=== PATIENT | male | born 1965 | race Caucasian/White ===

== ENCOUNTER 2016-11-05 06:00 | Inpatient (IN) ==
[2016-11-05] MEDS ORDERED: ceFAZolin 1,000 MG in D5% in Water (Mini-Bag+) 100 ML IVPB ONE (06:20)
[2016-11-05] MEDS ORDERED: Chlorhexidine Rinse 15 ML MOUTHWASH MM ONE (06:21)
[2016-11-05] MEDS ORDERED: Ringers Solution, Lactated 1,000 ML IVC SCH (06:30)
[2016-11-05] MEDS ORDERED: Tranexamic Acid 1,000 MG/10 ML VIAL ONE (06:49)
[2016-11-05] MEDS ORDERED: Famotidine 20 MG/2 ML VIAL ONE (06:49)
[2016-11-05] MEDS ORDERED: *HR* Rocuronium Bromide 50 MG/5 ML VIAL ONE ×3 (06:49→11:29)
[2016-11-05] MEDS ORDERED: *HR* Etomidate 20 MG/10 ML AMPUL IVP ONE (06:49)
[2016-11-05] MEDS ORDERED: *HR* Norepinephrine 4 MG/4 ML VIAL IVC ONE (06:49)
[2016-11-05] MEDS ORDERED: Protamine Sulfate 250 MG/25 ML VIAL IVP ONE (06:49)
[2016-11-05] MEDS ORDERED: *HR* Phenylephrine 10 MG/ML VIAL ONE (06:49)
[2016-11-05] MEDS ORDERED: *HR* Midazolam HCl 5 MG/5 ML VIAL IVP ONE ×2 (06:57→10:49)
[2016-11-05] MEDS ORDERED: *HR* FentaNYL (PF) 1,000 MCG/20 ML VIAL ONE (06:57)
[2016-11-05] MEDS ORDERED: Nitroglycerin 25 MG/250 ML INFUS..BTL IVC ONE ×2 (06:59→11:30)
--- NOTE | 2016-11-05 07:13 | History & Physical Report ---
Date of Encounter: 11/05/16 Time of Encounter: 07:12 24 Hour HP Update - Instructions Instructions: If the History and Physical is less than 30 days old and was completed prior to A.M. admission and or procedure and has NOT been updated on calendar day of procedure please complete this update prior to performing procedure. - Update Patient reports changes in Medical Condition: No Changes in assessment/condition: No Changes in Medication: No Preop tests/diagnostics Reviewed: Yes Pre-Op MRSA Screen: Negative Surgery Remains Indicated: Yes Consent for Planned Operative Procedure(s) Verified: Yes - Pre-Operative Checklist Preoperative Checklist Indicated: No Prophylactic Antibiotic Ordered: Yes Home Medications Include Beta Cornelia: Yes Beta Cornelia Taken Today (Day of Surgery): Yes Beta Cornelia Taken Yesterday (Day Prior to Surgery): Yes Is VTE Prophylaxis Indicated?: NO
--- NOTE | 2016-11-05 07:17 | Anesthesia Evaluation PreOp ---
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 Any Significant HX Other Medical History: Diabetes Type II Anesthesia History: No Prior Anesthetic Complications, Past Anesthesia ([place], CTR, finger amputation) Alcohol Use: none Drug use: none Medications and Allergies Aspirin 81 mg PO DAILY 11/01/16 [History] Fenofibrate Nanocrystallized [Tricor] 145 mg PO DAILY #30 tablet 11/01/16 [Rx] Isosorbide MONOnitrate (24 HR) [Imdur] 30 mg PO DAILY #30 tab.er.24h 11/01/16 [ Rx] Metoprolol [Lopressor] 12.5 mg PO BID 11/01/16 [History] Rosuvastatin Calcium [Crestor] 40 mg PO DAILY #30 tablet 11/01/16 [Rx] Allergies No Known Allergies Allergy (Verified 05/30/15 13:37) - Meds/Allergy Pre-op Review Medications Reviewed: Yes Allergies Reviewed: Yes Beta Blockers on Current Med List: Yes If Beta Blockers taken, Date/Time (Last Dose taken): 0500 on 11/05/16 Anesthesia Results - Imaging EKG: report reviewed Chest x-ray: report reviewed Additional studies: Cath shows 3 vessel disease with EF 60% Anesthesia Exam Selected Entries 11/05/16 06:32 Temperature 97.9 F Pulse Rate 67 Respiratory Rate 18 Blood Pressure 124/81 O2 Sat by Pulse Oximetry 97 Height: 70in Weight: 210lb Pain Scale: 0 Pain Scale Used: Numeric (1 - 10) - HEENT Pupil (Motor): EOMI Mallampati: II Teeth: Normal Oral Opening: Greater than 3 - MACHINE SIGN WRITER LOC: Oriented MACHINE SIGN WRITER Motor: Normal RUE, Normal LUE, Normal RLE, Normal LLE, Normal Face MACHINE SIGN WRITER Sensory: Normal: RUE, LUE, RLE, LLE, Face - Cardiac Rhythm: Regular Murmur: None - Pulmonary Breath Sounds: bilateral Clear Anesthesia Assess/Plan ASA Score: 3 Modified Cook Scale for Level of Consciousness: Cooperative, oriented, and tranquil Anesthetic Plan: General Monitoring Plan: Standard Monitors, A-Line, PAC Recovery Plan: ICU (Discussed GA, lines, possible BRUCE, blood products and need for ICU. Questions answered and agrees to proceed.)
[2016-11-05] MEDS ORDERED: Albumin Human 25% 25 GM/100 ML IV.SOLN IV ONE (08:32)
[2016-11-05] MEDS ORDERED: Lidocaine 2% Syringe 100 MG/5 ML IV ONE (08:32)
[2016-11-05] MEDS ORDERED: Mannitol 25% vial 12.5 GM/50 ML VIAL IVP ONE (08:32)
[2016-11-05] MEDS ORDERED: *HR* Heparin 10,000 UNIT/10 ML VIAL IV ONE (08:32)
[2016-11-05] MEDS ORDERED: *HR* Phenylephrine 10 MG/ML VIAL IVC ONE (08:32)
[2016-11-05] MEDS ORDERED: *HR* Magnesium Sulfate 2 GM/50 ML PIGGYBACK IVPB ONE (08:32)
--- NOTE | 2016-11-05 09:07 | Anesthesia Procedures ---
Date of Encounter: 11/05/16 Time of Encounter: 07:55 Procedures: Anesthesia - Arterial Line Consent obtained: written consent Time out performed: Yes Sedation: Versed (mg): 2 Sedation: Fentanyl (mcg): 100 Supplemental Oxygen via Nasal Cannula (L/min): 2 Local Anesthetic: Lidocaine 1% Amount of Anesthetic used (mls): 1 Size (Gauge): 20 Length (inches): 5 Technique Used: sterile prep, guide wire technique, direct puncture technique Post-Procedure: line sutured into place, line taped into place, dry sterile dressing placed Patient tolerated procedure: well, no complications Complications: none Site: Brachial R (poor right radial pulse. Was site of cardiac cath. attempt x 1 at brachial site.) - Central Line Placement Right IJ Consent obtained: written consent Time out performed: Yes Patient placed on monitor/pulse ox: Yes prep: mask, gown, gloves Central line prep: Chlorhexidine scrub Ultrasound used for placement: Yes Technique: Seldinger Lumen Inserted: Introducer Post procedure: sutured in place, good blood return, all ports aspirated, flushed, capped, sterile dressing applied Patient tolerated procedure: well, no complications (attempt x 1. [place] placed without issues and wedge at approx 55cm)
[2016-11-05] MEDS ORDERED: Esmolol 100 MG/10 ML VIAL IVP ONE ×2 (09:23→12:11)
[2016-11-05] MEDS ORDERED: *HR* FentaNYL (PF) 250 MCG/5 ML VIAL ONE (10:49)
[2016-11-05] MEDS ORDERED: NiCARdipine 2.5 MG/10 ML Syringe IVPB ONE (11:29)
[2016-11-05] MEDS ORDERED: 0.9 % Sodium Chloride w KCl 20 MEQ/1,000 ML MLS IVC ONE (11:30)
[2016-11-05] MEDS ORDERED: Albumin Human 5% 50.0 GM/1,000 ML VIAL ONE (11:30)
[2016-11-05] MEDS ORDERED: Insulin Regular, Human 100 UNIT/ML IV PRN (12:32)
[2016-11-05] MEDS ORDERED: Magnesium Sulfate 2 GM in D5% in Water 100 ML IVPB PRN (12:32)
[2016-11-05] MEDS ORDERED: Naloxone 0.4 MG/ML INJ IVP PRN (12:32)
[2016-11-05] MEDS ORDERED: Potassium Chloride 40 MEQ/200 ML BAG IVPB PRN (12:32)
[2016-11-05] MEDS ORDERED: Ondansetron 4 MG/2 ML VIAL IVPB PRN (12:32)
[2016-11-05] MEDS ORDERED: Acetaminophen 650 MG RECTAL SUPP RC PRN (12:32)
[2016-11-05] MEDS ORDERED: Calcium Chloride 1,000 MG in 0.9 % Sodium Chloride 100 ML IVPB PRN (12:32)
[2016-11-05] MEDS ORDERED: *HR* Dextrose 50 % in Water (Syg) 50 ML SYRINGE IVP PRN (12:32)
[2016-11-05] MEDS ORDERED: *HR* Morphine 2 MG/ML SYRINGE IVP PRN (12:32)
[2016-11-05] MEDS ORDERED: 0.9 % Sodium Chloride w KCl 20 MEQ/1,000 ML MLS IVC SCH (12:45)
[2016-11-05] MEDS ORDERED: Insulin Human Regular 100 UNIT in 0.9 % Sodium Chloride 100 ML IV SCH (12:45)
[2016-11-05] MEDS ORDERED: niCARdipine 40 MG/200 ML MLS IVC SCH (12:45)
[2016-11-05] MEDS ORDERED: Norepinephrine 4 MG in D5% in Water 250 ML IVC SCH (12:45)
[2016-11-05] MEDS ORDERED: Pantoprazole 40 MG VIAL IVP SCH (12:45)
--- NOTE | 2016-11-05 12:46 | Operative Note ---
Date of procedure: 11/05/16 Pre-op diagnosis: CAD Post-op diagnosis: same Procedure: 1. CABG 3 (GONZALEZ to LAD, free GABRIEL to OM1, left radial artery to PDA). 2. Left radial artery harvest. Implants: None. Complications: None. Anesthesia: MARYANN Surgeon: Billie Louis Quality Compliance Consultant: Ryan Wilkes Specimen: None. Condition: stable Disposition: ICU Procedure in Detail: INDICATIONS FOR OPERATION: The patient is a 51-year-old newly diagnosed type II diabetic, hypertensive man with hypercholesterolemia. He presents with a one-year history of exertional left jaw and neck pain. The patient underwent an extensive cardiac workup including a nuclear stress test and cardiac catheterization. The nuclear stress test revealed anterolateral and inferior ischemia. Subsequent cardiac catheterization revealed severe three-vessel CAD, including a 70% proximal LAD lesion, a 70-80% proximal LCx lesion, and tandem 95% mid RCA lesions. He has been recommended for CABG. Given the patient's young age and his diabetes I plan to attempt a total arterial revascularization using the GONZALEZ, GABRIEL, and left radial artery. FINDINGS AT OPERATION: The aorta was normal caliber without calcification. The coronary arteries measure approximately 1.5-2 mm diameter and had mild to moderate distal disease. The free GABRIEL and the left radial artery had good flow and were acceptable conduit. The total bypass time was 75 minutes, cross-clamp time 40 minutes, intentional hypothermia of 34C. DESCRIPTION OF OPERATION: After obtaining informed operative consent from the patient, he was taken to the operative room are satisfactory general tracheal anesthetic was induced. Appropriate monitoring lines were placed, the patient's chest, abdomen, and lower extremities were prepped and draped in a sterile fashion. The left radial artery was harvested after was determined in the preoperative area that the patient had good palmar arch flow while occluding the radial artery. Incision was made to the skin and subcutaneous tissue and the artery was harvested using a bipolar cautery device. The artery was removed distended and found to be of good quality. The subcutaneous tissue and skin edges were reapproximated running Vicryl sutures. Simultaneously a standard mid sternotomy incision was made and the sternum divided. The GONZALEZ was harvested from its bed and side branches divided between hemoclips. The GABRIEL was then harvested in a similar fashion and side branches divided between hemoclips. The patient was heparinized and the GABRIEL was divided both proximally and distally to be used as a free graft. The sternum was in the pericardium opened and reflected laterally. The patient was prepared for cannulation by placing pursestring sutures in the distal ascending aorta, mid-ascending aorta, and right atrial appendage. When the ACT was greater than 200 seconds the aorta was cannulated followed by placement of a dual stage venous cannula through the right atrial appendage and into the IVC. A stab-in metabolic cannula was placed in the mid-ascending aorta. The patient was placed on bypass and the temperature allowed to drift to 34C. The distal targets were identified and the aorta was then crossclamped. The patient received 700 mL of cold antegrade crystalloid cardioplegia through the mid-ascending aorta and the patient's heart obtain rapid diastolic arrest. The PDA was opened a [place] blade and the left radial artery was anastomosed in end-to-side fashion to the PDA using a running 7-0 Prolene suture. The anastomosis found to be hemostatic the patient stated of this cold antegrade crystalloid cardioplegia through the aortic root. The OM1 branch was then opened with a [place] blade and the free GABRIEL was anastomosed in end-to-side fashion using a running 7-0 Prolene suture. The anastomosis found to be hemostatic and the mammary pedicle was tacked to the epicardium using interrupted 5-0 silk suture. After this anastomosis the patient received a final dose of cold antegrade crystalloid cardioplegia through the aortic root. The LAD was opened [place] blade and the GONZALEZ was anastomosed in an end-to-side fashion using a running 7-0 Prolene suture. The anastomosis was found to be hemostatic and the mammary pedicle was tacked to the epicardium using interrupted 5-0 silk suture. Rewarming was begun during this anastomosis. The aortic cross-clamp was released and the heart distended. The left radial artery and the GABRIEL were measured and cut at appropriate lengths. A partial occluding clamp was placed across the mid-ascending aorta and the antegrade cardioplegia cannula was removed. Additional aortotomy site was admitted 11 blade and both sites were enlarged with a 4 mm punch. The left radial artery and the GABRIEL were anastomosed in an end-to-side fashion to the aorta using a running 6-0 Prolene suture. The arterial grafts for left back bleed, and thus de -air the ascending aorta prior to removing the partial occluding clamp. The anastomoses were tied securely. The proximal distal anastomoses were found to be hemostatic and the proximal anastomoses were marked with radiopaque loops. Two right ventricular temporary epicardial patient was replaced, and 4 chest tubes were placed, 2 in the mediastinum and one into either pleural space. During rewarming the patient's heart rhythm degenerated to ventricular fibrillation and he required two 10 J direct current shocks in order to regain normal sinus rhythm. When the patient' s systemic temperature reached 36C, he was ventilated to receive volume. He was then weaned from bypass and required no inotropic support. Protamine was administered and the aortic and venous cannulas were removed. The pursestring sutures were secured and the venous cannulation site was reinforced with a 4 Prolene suture. The pericardium was loosely approximated in the midline using interrupted 0 silk suture, and the sternum was reapproximated using double wires. The pectoralis major fascia, rectus abdominis fascia, subcutaneous tissue, and skin edges were reapproximated using running Vicryl sutures. A negative pressure dressing was applied to the sternotomy incision. The patient was transferred to the ICU in satisfactory postoperative condition. There were no intraoperative complications, and instrument, needle, and sponge count were correct at end operation. - Open Heart Detail GRAY (Internal Mammary Artery) Usage: Yes Cardiopulmonary Bypass Time (mins): 75 Aortic Cross Clamp Time (mins): 40 Intentional Hypothermia Temperature (C.): 34
[2016-11-05] MEDS: Nitroglycerin 25 MG/250 ML INFUS..BTL IVC SCH ×2 (13:02→23:02)
[2016-11-05 13:39] LABS: Basophils % 0.2 %; Eosinophils # 0.1 K/mcL (0.0-0.6); Eosinophils % 0.6 %; Hematocrit 37.1 % (37.5-50.1); Immature Granulocytes % 0.6 % (0-4); Lymphocytes # 3.1 K/mcL (0.6-4.6); Lymphocytes % 19.8 %; Mean Corpuscular HGB Conc 35.3 g/dL (31.6-35.5); Mean Corpuscular Hemoglobin 29.6 pg (28.0-33.3); Mean Corpuscular Volume 83.7 fL (83.0-100.0); Mean Platelet Volume 10.2 fL (9.4-12.4); Monocytes # 0.7 K/mcL (0.0-1.3); Monocytes % 4.2 %; Neutrophils # 11.8 K/mcL (1.6-8.9); Platelet Count 120 K/mcL (140-400); Red Blood Count 4.43 M/mcL (4.19-5.50); Red Cell Distribution Width 12.2 % (11.5-14.5); Segmented Neutrophils % 74.6 %
[2016-11-05 13:41] LABS: Hemoglobin 13.1 g/dL (12.9-16.9)
[2016-11-05 13:49] LABS: INR 1.4; Prothrombin Time 14.8 Seconds (9.4-12.1)
[2016-11-05 13:50] LABS: Blood Urea Nitrogen 11 mg/dL (8-26); eGFR For African Americans > 60 (> 60); eGFR For Non-African Americans > 60 (> 60)
[2016-11-05 13:51] LABS: ABG Base Excess 1.8 mEq/L (-2.0 to 3.0); ABG HCO3 25.7 mEQ/L (21-27); ABG Oxygen Saturation 99 % (95-98); ABG PCO2 37 mmHg (35-45); ABG PO2 117 mmHg (85-104); ABG TCO2 26.8 mEq/L (20-26); Activated Partial Thrombo Time 27.3 Seconds (26.0-36.0)
[2016-11-05 13:53] LABS: ABG PH 7.45 pH Units (7.32-7.45); Blood Gas FiO2 50 %
[2016-11-05 14:06] LABS: Platelet Estimate Decreased (Normal)
[2016-11-05] MEDS: *HR* Morphine 2 MG/ML SYRINGE IVP PRN ×2 (14:43→15:10)
[2016-11-05 14:53] LABS: Carbon Dioxide 20 mEq/L (19-29); Chloride 107 mEq/L (98-109); Potassium 3.6 mEq/L (3.5-4.5); Sodium 139 mEq/L (136-145)
[2016-11-05 14:54] LABS: BUN/Creatinine Ratio 14 (6-26); Glucose 183 mg/dL (70-99); Osmolality,Calculated 292 (280-300)
[2016-11-05 14:55] LABS: Calcium 8.4 mg/dL (8.6-10.8); Magnesium 2.1 mg/dL (1.6-2.6)
[2016-11-05 15:13] LABS: ABG Base Excess 0.5 mEq/L (-2.0 to 3.0); ABG HCO3 28.7 mEQ/L (21-27); ABG Hematocrit 44 % (35-51); ABG Oxygen Saturation 100 % (95-98); ABG PCO2 61 mmHg (35-45); ABG PH 7.28 pH Units (7.32-7.45); ABG PO2 224 mmHg (85-104); ABG TCO2 30.6 mEq/L (20-26)
[2016-11-05 15:14] LABS: ABG Glucose 261 mg/dL (60-95); ABG Ionized Calcium 1.01 mmol/L (1.15-1.35)
[2016-11-05 15:15] LABS: ABG PCO2 48 mmHg (35-45); ABG PH 7.35 pH Units (7.32-7.45)
[2016-11-05 15:16] LABS: ABG Base Excess 0.7 mEq/L (-2.0 to 3.0); ABG Glucose 274 mg/dL (60-95); ABG HCO3 26.5 mEQ/L (21-27); ABG Hematocrit 24 % (35-51); ABG Oxygen Saturation 100 % (95-98); ABG PO2 385 mmHg (85-104)
[2016-11-05 15:18] LABS: ABG Base Excess 2.2 mEq/L (-2.0 to 3.0); ABG Glucose 268 mg/dL (60-95); ABG HCO3 26.4 mEQ/L (21-27); ABG Hematocrit 23 % (35-51); ABG Oxygen Saturation 100 % (95-98); ABG PCO2 38 mmHg (35-45); ABG PH 7.45 pH Units (7.32-7.45); ABG PO2 344 mmHg (85-104); ABG TCO2 27.6 mEq/L (20-26)
[2016-11-05 15:20] LABS: ABG Base Excess 1.4 mEq/L (-2.0 to 3.0); ABG Glucose 232 mg/dL (60-95); ABG HCO3 26.6 mEQ/L (21-27); ABG Hematocrit 25 % (35-51); ABG Ionized Calcium 0.95 mmol/L (1.15-1.35); ABG Oxygen Saturation 100 % (95-98); ABG PCO2 44 mmHg (35-45); ABG PH 7.39 pH Units (7.32-7.45); ABG PO2 389 mmHg (85-104)
[2016-11-05 15:22] LABS: ABG Base Excess 0.2 mEq/L (-2.0 to 3.0); ABG Glucose 205 mg/dL (60-95); ABG HCO3 26.4 mEQ/L (21-27); ABG Hematocrit 27 % (35-51); ABG Oxygen Saturation 95 % (95-98); ABG PCO2 50 mmHg (35-45); ABG PH 7.33 pH Units (7.32-7.45); ABG PO2 79 mmHg (85-104); ABG TCO2 27.9 mEq/L (20-26)
[2016-11-05 15:23] LABS: ABG Ionized Calcium 1.19 mmol/L (1.15-1.35)
[2016-11-05 16:56] LABS: ABG Base Excess -0.6 mEq/L (-2.0 to 3.0); ABG HCO3 23.1 mEQ/L (21-27); ABG Oxygen Saturation 99 % (95-98); ABG PCO2 34 mmHg (35-45); ABG PH 7.44 pH Units (7.32-7.45); ABG PO2 117 mmHg (85-104); ABG TCO2 24.1 mEq/L (20-26)
[2016-11-05 16:57] LABS: Blood Gas FiO2 35 %
[2016-11-05] MEDS: Metoclopramide 10 MG/2 ML VIAL IVP SCH ×2 (17:24→23:06)
[2016-11-05] MEDS: Ketorolac 15 MG/ML VIAL IVP SCH ×2 (17:24→23:06)
[2016-11-05] MEDS: Acetaminophen 325 MG TABLET PO PRN ×2 (17:24→23:05)
[2016-11-05] MEDS: *HR* OxyCODONE/APAP 5/325 TABLET PO PRN (17:24)
--- NOTE | 2016-11-05 17:48 | Electrocardiograph Report ---
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
[2016-11-05] MEDS ORDERED: *HR* Metoprolol 5 MG/5 ML VIAL IVP PRN (18:40)
[2016-11-05 19:45] LABS: Hematocrit 37.6 % (37.5-50.1)
[2016-11-05] MEDS: ceFAZolin 2,000 MG in D5% in Water 100 ML IVPB SCH (20:17)
[2016-11-05 20:38] LABS: ABG Base Excess 1.7 mEq/L (-2.0 to 3.0); ABG HCO3 26.6 mEQ/L (21-27); ABG Oxygen Saturation 99 % (95-98); ABG PCO2 42 mmHg (35-45); ABG PH 7.41 pH Units (7.32-7.45); ABG PO2 151 mmHg (85-104); ABG TCO2 27.9 mEq/L (20-26)
[2016-11-05 20:39] LABS: Blood Gas FiO2 35 %
[2016-11-05] MEDS ORDERED: Chlorhexidine Rinse 15 ML MOUTHWASH MM SCH (21:00)
[2016-11-05 22:42] LABS: ABG HCO3 27.9 mEQ/L (21-27); ABG Oxygen Saturation 99 % (95-98); ABG PCO2 43 mmHg (35-45); ABG PH 7.42 pH Units (7.32-7.45); ABG PO2 129 mmHg (85-104); ABG TCO2 29.2 mEq/L (20-26)
[2016-11-06] MEDS ORDERED: Heparin 1,000 UNITS/500 mL NS 500 ML ONE (03:07)
[2016-11-06] MEDS: *HR* OxyCODONE/APAP 5/325 TABLET PO PRN ×3 (03:25→17:44)
[2016-11-06] MEDS: ceFAZolin 2,000 MG in D5% in Water 100 ML IVPB SCH (04:01)
[2016-11-06 04:17] LABS: Basophils % 0.2 %; Hematocrit 37.5 % (37.5-50.1); Hemoglobin 12.9 g/dL (12.9-16.9); Immature Granulocytes % 0.5 % (0-4); Lymphocytes # 1.9 K/mcL (0.6-4.6); Lymphocytes % 11.3 %; Mean Corpuscular HGB Conc 34.4 g/dL (31.6-35.5); Mean Corpuscular Hemoglobin 29.8 pg (28.0-33.3); Mean Corpuscular Volume 86.6 fL (83.0-100.0); Mean Platelet Volume 10.9 fL (9.4-12.4); Monocytes # 1.6 K/mcL (0.0-1.3); Monocytes % 9.5 %; Neutrophils # 12.9 K/mcL (1.6-8.9); Platelet Count 188 K/mcL (140-400); Red Blood Count 4.33 M/mcL (4.19-5.50); Red Cell Distribution Width 12.6 % (11.5-14.5); Segmented Neutrophils % 78.5 %
[2016-11-06 04:19] LABS: INR 1.2; Prothrombin Time 12.9 Seconds (9.4-12.1)
[2016-11-06 04:21] LABS: Activated Partial Thrombo Time 28.2 Seconds (26.0-36.0)
[2016-11-06 04:26] LABS: BUN/Creatinine Ratio 17 (6-26); Blood Urea Nitrogen 18 mg/dL (8-26); Carbon Dioxide 20 mEq/L (19-29); Chloride 107 mEq/L (98-109); Glucose 150 mg/dL (70-99); Magnesium 2.2 mg/dL (1.6-2.6); Osmolality,Calculated 291 (280-300); Potassium 4.4 mEq/L (3.5-4.5); eGFR For African Americans > 60 (> 60); eGFR For Non-African Americans > 60 (> 60)
[2016-11-06 04:27] LABS: Sodium 138 mEq/L (136-145)
--- NOTE | 2016-11-06 04:59 | Cardiothoracic Progress Note ---
Date of Encounter: 11/06/16 Time of Encounter: 04:58 - Assessment and plan (1) CAD (coronary artery disease) Current Visit: No Status: Acute The patient has remained hemodialysis overnight. He is extubated and breathing comfortably. The arterial line, [place] catheter, [place] catheter be removed. He will be transferred to the stepdown unit later today. The assessment and plan as outlined above was discussed with the patient and/or family members who expressed understanding and agreement. All questions were answered. Qualifiers: Coronary Disease-Associated Artery/Lesion type: [place] artery [place] vs. transplanted heart: [place] heart Associated angina: with stable angina Qualified Code(s): I25.118 - Atherosclerotic heart disease of [place] coronary artery with other forms of angina pectoris - Subjective Procedure(s) Performed: POD#1 S/P CABG3 Interval history: The patient remained hemodynamically stable overnight. He is extubated and breathing comfortably. He is sitting in a chair at the bedside. Vital Signs, Last 4 Hours Temp Pulse Resp BP Pulse Ox 11/06/16 04:05 15 115/76 98 11/06/16 03:54 99.2 F 104 16 113/84 98 11/06/16 03:43 104 11/06/16 02:57 99.2 F 101 16 106/66 100 11/06/16 02:07 99.2 F 104 16 105/67 98 Oxgyen Flow Rate Oxygen Flow Rate (LPM) 2 Clinical Data, last 8 Hours Output, Chest Tube Drainage 15 Amount [CT #3] Output, Chest Tube Drainage 0 Amount [CT #3] Output, Chest Tube Drainage 0 Amount [CT #3] Output, Chest Tube Drainage 5 Amount [CT #3] Output, Chest Tube Drainage 0 Amount [CT #3] Output, Chest Tube Drainage 0 Amount [CT #3] Output, Chest Tube Drainage 0 Amount [CT #3] Output, Chest Tube Drainage 0 Amount [CT #3] Output, Chest Tube Drainage 0 Amount [CT #3] Output, Chest Tube Drainage 0 Amount [CT #3] Output, Chest Tube Drainage 30 Amount [CT #2] Output, Chest Tube Drainage 0 Amount [CT #2] Output, Chest Tube Drainage 0 Amount [CT #2] Output, Chest Tube Drainage 20 Amount [CT #2] Output, Chest Tube Drainage 20 Amount [CT #2] Output, Chest Tube Drainage 30 Amount [CT #2] Output, Chest Tube Drainage 30 Amount [CT #2] Output, Chest Tube Drainage 30 Amount [CT #2] Output, Chest Tube Drainage 15 Amount [CT #2] Output, Chest Tube Drainage 25 Amount [CT #2] Output, Chest Tube Drainage 15 Amount [CT #1] Output, Chest Tube Drainage 0 Amount [CT #1] Output, Chest Tube Drainage 0 Amount [CT #1] Output, Chest Tube Drainage 0 Amount [CT #1] Output, Chest Tube Drainage 5 Amount [CT #1] Output, Chest Tube Drainage 0 Amount [CT #1] Output, Chest Tube Drainage 0 Amount [CT #1] Output, Chest Tube Drainage 0 Amount [CT #1] Output, Chest Tube Drainage 0 Amount [CT #1] Output, Chest Tube Drainage 0 Amount [CT #1] Weight 11/04/16 11/05/16 11/06/16 23:59 23:59 23:59 Weight 95.254 kg - Physical Examination General: Conversant, No Apparent Distress Neck: No JVD, Normal carotid pulses Cardiac: Reg Rate and Rhythm, Normal S1 and S2, No Murmur Incision: No signs of infection, Dry/intact dressing Sternum: Stable Chest tubes: Minimal drainage, Other (No air leak.) Pacing Wires: In place Lungs: Normal Breath Sounds, No Wheeze, Rales, Rhonchi Neuro: Alert and responsive, No focal deficits noted Vascular: Normal capillary refill, Other (Normal motor function and sensation and left hand. Brisk capillary refill.) Extremities: No Clubbing, No Cyanosis, No Edema - Labs 11/06/16 03:55 11/06/16 03:55 Lab Results, Last 24 hours 11/05/16 11/05/16 11/05/16 13:28 13:28 13:28 WBC 15.8 H D Hgb 13.1 D Hct 37.1 L Plt Count 120 L INR 1.4 D APTT 27.3 Sodium 139 Potassium 3.6 Chloride 107 Carbon Dioxide 20 BUN 11 Creatinine 0.79 Glucose 183 H Calcium 8.4 L Magnesium 2.1 11/05/16 11/05/16 11/06/16 19:25 19:25 03:55 WBC 16.4 H Hgb 13.0 12.9 Hct 37.6 37.5 Plt Count 188 D INR APTT Sodium Potassium 4.0 Chloride Carbon Dioxide BUN Creatinine Glucose Calcium Magnesium 11/06/16 03:55 WBC Hgb Hct Plt Count INR APTT Sodium 138 Potassium 4.4 Chloride 107 Carbon Dioxide 20 BUN 18 Creatinine 1.06 Glucose 150 H Calcium 8.0 L Magnesium 2.2 - VTE Documentation of Mechanical Device: Graduated compression elastic hosiery Consult Discharge Plan - Plan Referrals: Leticia Dotson, [employer] K[employer] PRESS OPERATOR [Primary Care Provider] -
[2016-11-06] MEDS: *HR* Morphine 2 MG/ML SYRINGE IVP PRN (05:10)
[2016-11-06] MEDS: Ketorolac 15 MG/ML VIAL IVP SCH ×4 (05:46→23:39)
[2016-11-06] MEDS: Metoclopramide 10 MG/2 ML VIAL IVP SCH ×4 (05:46→23:40)
[2016-11-06] MEDS: Nitroglycerin 25 MG/250 ML INFUS..BTL IVC SCH (06:00)
[2016-11-06] MEDS ORDERED: Acetaminophen 325 MG TABLET PO PRN (06:19)
[2016-11-06] MEDS ORDERED: *HR* Dextrose 50 % in Water (Syg) 50 ML SYRINGE IVP PRN (06:19)
[2016-11-06] MEDS ORDERED: Insulin Human Regular 100 UNIT in 0.9 % Sodium Chloride 100 ML IV SCH (06:19)
[2016-11-06] MEDS ORDERED: Dextrose Gel 15 GM PO PRN ×2 (06:19)
[2016-11-06] MEDS ORDERED: Naloxone 0.4 MG/ML INJ IVP PRN (06:19)
[2016-11-06] MEDS ORDERED: Ondansetron 4 MG/2 ML VIAL IVPB PRN (06:19)
[2016-11-06] MEDS ORDERED: Insulin LISPRO 300 UNITS/3 ML VIAL SQ PRN (06:19)
[2016-11-06] MEDS ORDERED: D5% in Water 1,000 ML IV PRN (06:19)
[2016-11-06] MEDS ORDERED: *HR* Morphine 2 MG/ML SYRINGE IVP PRN ×2 (06:19)
[2016-11-06] MEDS: Chlorhexidine Rinse 15 ML MOUTHWASH MM SCH ×2 (08:43→19:59)
[2016-11-06] MEDS: Fenofibrate 54 MG TABLET PO SCH (08:43)
[2016-11-06] MEDS: Furosemide 20 MG/2 ML VIAL IVP SCH ×2 (08:44→20:00)
[2016-11-06] MEDS: Aspirin Enteric Coated 81 MG Tablet PO SCH (08:44)
[2016-11-06] MEDS: Pantoprazole 40 MG VIAL IVP SCH (08:44)
[2016-11-06] MEDS: Insulin LISPRO 300 UNITS/3 ML VIAL SQ SCH ×3 (08:45→16:13)
[2016-11-06] MEDS: *HR* Heparin 5,000 UNIT/ML VIAL SQ SCH ×2 (08:46→19:59)
[2016-11-06] MEDS ORDERED: Furosemide 20 MG/2 ML VIAL IVP SCH (09:00)
[2016-11-06] MEDS ORDERED: Aspirin Enteric Coated 81 MG Tablet PO SCH (09:00)
[2016-11-06] MEDS ORDERED: Insulin LISPRO 300 UNITS/3 ML VIAL SQ SCH (21:00)
[2016-11-07] MEDS: Ketorolac 15 MG/ML VIAL IVP SCH ×3 (05:19→17:03)
[2016-11-07] MEDS: Metoclopramide 10 MG/2 ML VIAL IVP SCH ×3 (05:19→17:03)
[2016-11-07 05:59] LABS: Hematocrit 32.7 % (37.5-50.1); Mean Corpuscular HGB Conc 32.4 g/dL (31.6-35.5); Mean Corpuscular Hemoglobin 28.9 pg (28.0-33.3); Mean Corpuscular Volume 89.1 fL (83.0-100.0); Mean Platelet Volume 10.8 fL (9.4-12.4); Platelet Count 140 K/mcL (140-400); Red Blood Count 3.67 M/mcL (4.19-5.50); Red Cell Distribution Width 12.8 % (11.5-14.5)
[2016-11-07 06:01] LABS: Hemoglobin 10.6 g/dL (12.9-16.9)
[2016-11-07 06:13] LABS: BUN/Creatinine Ratio 23 (6-26); Blood Urea Nitrogen 24 mg/dL (8-26); Calcium 8.3 mg/dL (8.6-10.8); Carbon Dioxide 24 mEq/L (19-29); Chloride 102 mEq/L (98-109); Glucose 235 mg/dL (70-99); Osmolality,Calculated 298 (280-300); Potassium 4.5 mEq/L (3.5-4.5); Sodium 138 mEq/L (136-145); eGFR For African Americans > 60 (> 60); eGFR For Non-African Americans > 60 (> 60)
[2016-11-07] MEDS: *HR* Heparin 5,000 UNIT/ML VIAL SQ SCH ×2 (06:36→17:04)
--- NOTE | 2016-11-07 07:46 | Anesthesia Evaluation Post Op ---
Date of Encounter: 11/06/16 Time of Encounter: 10:30 - Vital Signs Vital Signs: Selected Entries 11/06/16 08:00 Pulse Rate 103 Respiratory Rate 18 Blood Pressure 108/66 O2 Sat by Pulse Oximetry 98 Oxygen Delivery Method Nasal Cannula - Lungs Lungs: Clear Ascult./Percussion - Airway Airway: Non-obstructed - Cardiovascular Regular Rate (sinus tach) - Mental Status Mental Status: Alert & Oriented, Answers Appropriately - Pain Pain Scale: 3 Pain Scale used: Numeric (1 - 10) - Nausea Vomiting Nausea Vomiting: Not Present - Hydration Hydration: Tolerates oral liquids, Able to void - Discharge PostOp Status: Transfer Patient to floor (No apparent anesthesia issues)
[2016-11-07] MEDS: Chlorhexidine Rinse 15 ML MOUTHWASH MM SCH ×2 (08:13→20:14)
[2016-11-07] MEDS: *HR* OxyCODONE/APAP 5/325 TABLET PO PRN (08:14)
[2016-11-07] MEDS: Fenofibrate 54 MG TABLET PO SCH (08:14)
[2016-11-07] MEDS: Aspirin Enteric Coated 81 MG Tablet PO SCH (08:15)
[2016-11-07] MEDS: Insulin LISPRO 300 UNITS/3 ML VIAL SQ SCH ×4 (08:20→20:14)
[2016-11-07] MEDS: Pantoprazole 40 MG VIAL IVP SCH (08:25)
[2016-11-07] MEDS: Furosemide 20 MG/2 ML VIAL IVP SCH ×2 (08:26→20:13)
--- NOTE | 2016-11-07 09:25 | Cardiothoracic Progress Note ---
Date of Encounter: 11/07/16 Time of Encounter: 09:23 - Assessment and plan (1) CAD (coronary artery disease) Current Visit: No Status: Acute The patient has remained hemodialysis overnight, though he has persistent tachycardia (unchanged since preoperatively). The beta gabriela will be increased to better control his heart rate. The patient's blood sugars remain elevated and I have consulted the hospitalist to help initiate medical management of his newly diagnosed diabetes mellitus. The diabetic nurse educator will also see the patient. The chest tubes were removed. The patient will begin ambulating in the hallways later today. The assessment and plan as outlined above was discussed with the patient and/or family members who expressed understanding and agreement. All questions were answered. Qualifiers: Coronary Disease-Associated Artery/Lesion type: [place] artery [place] vs. transplanted heart: [place] heart Associated angina: with stable angina Qualified Code(s): I25.118 - Atherosclerotic heart disease of [place] coronary artery with other forms of angina pectoris - Subjective Procedure(s) Performed: POD#2 S/P CABG3 Interval history: The patient remained hemodynamically stable overnight. He is sitting in a chair at the bedside and has no complaints. Vital Signs, Last 4 Hours Temp Pulse Resp BP Pulse Ox 11/07/16 09:13 98.3 F 118 18 127/92 97 11/07/16 08:19 16 94 L 11/07/16 07:57 111 Oxgyen Flow Rate Oxygen Flow Rate (LPM) 1 Clinical Data, last 8 Hours Output, Chest Tube Drainage 0 Amount [CT #3] Output, Chest Tube Drainage 0 Amount [CT #3] Output, Chest Tube Drainage 0 Amount [CT #2] Output, Chest Tube Drainage 0 Amount [CT #2] Output, Chest Tube Drainage 0 Amount [CT #1] Output, Chest Tube Drainage 0 Amount [CT #1] Weight 11/05/16 11/06/16 11/07/16 23:59 23:59 23:59 Weight 95.254 kg 95.255 kg - Physical Examination General: Conversant, No Apparent Distress Neck: No JVD, Normal carotid pulses Cardiac: Reg Rate and Rhythm, Normal S1 and S2, No Murmur Incision: No signs of infection, Dry/intact dressing Sternum: Stable Chest tubes: Minimal drainage, Other (No air leak.) Pacing Wires: In place Lungs: Normal Breath Sounds, No Wheeze, Rales, Rhonchi Neuro: Alert and responsive, No focal deficits noted Vascular: Normal capillary refill Extremities: No Clubbing, No Cyanosis, No Edema - Labs 11/07/16 05:45 11/07/16 05:45 Lab Results, Last 24 hours 11/07/16 11/07/16 05:45 05:45 WBC 11.3 H Hgb 10.6 L D Hct 32.7 L Plt Count 140 Sodium 138 Potassium 4.5 Chloride 102 Carbon Dioxide 24 BUN 24 Creatinine 1.03 Glucose 235 H Calcium 8.3 L - VTE Documentation of Mechanical Device: Graduated compression elastic hosiery Consult Discharge Plan - Plan Referrals: Micah Kimble DO [Partnered Physician] - (SENT WEB REQUEST ON 11-07-16 @ [phone] ) Leticia Dotson, BELLY ROLLER [Primary Care Provider] - (SENT WEB REQUEST ON 11-07-16 @ [phone])
--- NOTE | 2016-11-07 10:06 | Internal Medicine Consult Note ---
Date of Encounter: 11/07/16 Time of Encounter: 09:30 Internal Medicine - CN: HPI - Data of Consult Patient: new to practice Consult date: 11/07/16 Requesting Physician: Billie Louis MD - Consult Narrative Reason for consult: Newly diagnosed with diabetes mellitus History of present illness: Mr. Messer is a 51 year old male with past medical history of CAD, hypertension, hypertriglyceridemia, and newly diagnosed diabetes mellitus type 2. Patient underwent CABG 3 (GONZALEZ to the LAD, GABRIEL to OM1, left radial artery to PDA) on 11/05/2016 without complications. I have been asked to manage his newly diagnosed diabetes mellitus. During the hospitalization, his blood sugar has been up to high 300s and was started on insulin drip until this morning. Patient is tolerating well his diet; however, he has a poor appetite. No nausea , no vomiting. His both parents had diabetes. All systems: reviewed and no additional remarkable complaints except as stated Past Med Surg Social Fam HX - Past Medical History Medical history: coronary artery disease, diabetes, hyperlipidemia, hypertension Psychiatric history: no psych history - Past Surgical History Surgical History: appendectomy, other - Social History Smoking Status: Former smoker Packs per day: none in the last year Smokeless Tobacco Status: Yes (DAILY) Alcohol use: none Drug use: none - Family History Mother Hx Family Endocrine Disorder: Yes (Diabetes) Internal Medicine - CN: Meds Aspirin 81 mg PO DAILY 11/01/16 [History] Fenofibrate Nanocrystallized [Tricor] 145 mg PO DAILY #30 tablet 11/01/16 [Rx] Isosorbide MONOnitrate (24 HR) [Imdur] 30 mg PO DAILY #30 tab.er.24h 11/01/16 [ Rx] Metoprolol [Lopressor] 12.5 mg PO BID 11/01/16 [History] Rosuvastatin Calcium [Crestor] 40 mg PO DAILY #30 tablet 11/01/16 [Rx] Allergies No Known Allergies Allergy (Verified 11/05/16 07:29) Internal Medicine - CN: Exam - Constitutional Vitals: Temp Pulse Resp BP Pulse Ox 98.3 F 118 16 127/92 94 L 11/07/16 08:15 11/07/16 08:15 11/07/16 08:19 11/07/16 08:15 11/07/16 08:19 General appearance IM: Present: cooperative, A&O X 3, pleasant, no acute distress, answers questions appropriately - Head Head exam: Present: atraumatic - Eye Eye exam: Present: PERRL, sclera anicteric - ENT ENT exam: Present: mucous membranes moist - Neck Neck exam general surgery: Present: supple, trachea midline. Absent: lymphadenopathy - Respiratory Respiratory exam: Present: decreased breath sounds (at Left lung field base) Additional comments: Chest: Surgical dressing at site. Pericardial drain at site. - Cardiovascular Cardiovascular exam IM: Present: tachycardia - GI/Abdominal GI/Abdominal exam IM: Present: normal bowel sounds, soft. Absent: distended, tenderness - Extremities Exam Extremities exam IM: Present: pedal edema - Back Exam Back exam: Absent: CVA tenderness (L), CVA tenderness (R) - Neurological Exam Neurological exam: Present: alert, oriented X3. Absent: facial droop, speech deficit - Skin Skin exam IM: Absent: rash Internal Medicine - CN: Reslt - Labs CBC & Chem 7: 11/07/16 05:45 11/07/16 05:45 Labs: Short CBC 11/07/16 Range/Units 05:45 WBC 11.3 H (4.3-11.1) K/mcL Hgb 10.6 L D (12.9-16.9) g/dL Hct 32.7 L (37.5-50.1) % Plt Count 140 (140-400) K/mcL BMP 11/07/16 05:45 Sodium 138 Potassium 4.5 Chloride 102 Carbon Dioxide 24 BUN 24 Creatinine 1.03 Glucose 235 H Calcium 8.3 L - ABG Interpretation ABG results: ABG ABG pH 7.42 pH Units (7.32-7.45) 11/05/16 21:52 ABG pCO2 43 mmHg (35-45) 11/05/16 21:52 ABG pO2 129 mmHg (85-104) H 11/05/16 21:52 ABG O2 Saturation 99 % (95-98) H 11/05/16 21:52 PT/INR, D-dimer PT 12.9 Seconds (9.4-12.1) H 11/06/16 03:55 - Impressions Impressions Chest X-Ray 11/07/16 09:26 IMPRESSION: 1. New tiny right apical pneumothorax following removal of the chest tubes. Continued radiographic follow-up is recommended. 2. Bibasilar atelectasis, improved on the right. D/ / Aaron Xiong MD / Aaron Xiong MD Interpreting Provider: Aaron Xiong MD - Assessment and Plan (1) Diabetes mellitus Current Visit: Yes Status: Acute Assessment and plan: Newly diagnosed diabetes mellitus. Hemoglobin A1c 11.1. Patient required insulin drip post CABG, this has been stopped today. Start Levemir 12 units twice a day. Continue insulin sliding scale. Diabetic diet. Patient will go home on Lantus, will order insulin teaching at the bedside. cosmetology educator has been consulted. We will continue to follow patient. Thank you for the consult. Qualifiers: Diabetes mellitus type: type 2 Diabetes mellitus complication status: with hyperglycemia Diabetes mellitus termite helper insulin use: without jail use Qualified Code(s): E11.65 - Type 2 diabetes mellitus with hyperglycemia (2) Hypertriglyceridemia Current Visit: Yes Status: Chronic Assessment and plan: Patient takes TriCor 145 mg at home. Triglyceride level was 1254 on 10/31/2016. Patient is currently on TriCor 162 mg daily. Recheck triglyceride level in the morning. Consult Discharge Plan - Plan Referrals: Billie Louis MD [Partnered Physician] - 12/06/16 1:20 pm Micah Kimble DO [Partnered Physician] - (SENT WEB REQUEST ON 11-07-16 @ 0915 ) Leticia Dotson CNP [Primary Care Provider] - (SENT WEB REQUEST ON 11-07-16 @ 0909)
[2016-11-07] MEDS: Insulin DETEMIR 100 UNIT/ML X5UNITS SQ SCH ×2 (10:23→20:14)
[2016-11-08] MEDS: Ketorolac 15 MG/ML VIAL IVP SCH ×5 (01:44→23:44)
[2016-11-08] MEDS: Metoclopramide 10 MG/2 ML VIAL IVP SCH ×4 (01:44→16:55)
[2016-11-08 05:22] LABS: Basophils % 0.1 %; Eosinophils % 0.1 %; Hematocrit 29.3 % (37.5-50.1); Hemoglobin 9.7 g/dL (12.9-16.9); Immature Granulocytes % 0.4 % (0-4); Lymphocytes # 1.4 K/mcL (0.6-4.6); Lymphocytes % 17.1 %; Mean Corpuscular HGB Conc 33.1 g/dL (31.6-35.5); Mean Corpuscular Hemoglobin 29.4 pg (28.0-33.3); Mean Corpuscular Volume 88.8 fL (83.0-100.0); Mean Platelet Volume 10.9 fL (9.4-12.4); Monocytes # 0.6 K/mcL (0.0-1.3); Neutrophils # 6.2 K/mcL (1.6-8.9); Platelet Count 162 K/mcL (140-400); Red Cell Distribution Width 12.6 % (11.5-14.5); Segmented Neutrophils % 75.3 %
[2016-11-08 05:43] LABS: Alanine Aminotransferase 15 Units/L (0-55); Albumin 2.8 g/dL (3.5-5.0); Albumin/Globulin Ratio 0.8 (1.1-2.2); Alkaline Phosphatase 69 Units/L (38-126); Aspartate Amino Transferase 15 Units/L (5-34); BUN/Creatinine Ratio 28 (6-26); Bilirubin,Total 0.6 mg/dL (0.2-1.2); Blood Urea Nitrogen 27 mg/dL (8-26); Calcium 8.5 mg/dL (8.6-10.8); Carbon Dioxide 25 mEq/L (19-29); Chloride 104 mEq/L (98-109); Globulin 3.4 g/dL (2.4-3.5); Glucose 218 mg/dL (70-99); Magnesium 2.3 mg/dL (1.6-2.6); Osmolality,Calculated 302 (280-300); Phosphorous 2.3 mg/dL (2.3-4.7); Potassium 3.8 mEq/L (3.5-4.5); Sodium 140 mEq/L (136-145); Total Protein 6.2 g/dL (6.0-8.3); Triglycerides 225 mg/dL (< 150); eGFR For African Americans > 60 (> 60); eGFR For Non-African Americans > 60 (> 60)
[2016-11-08] MEDS: *HR* Heparin 5,000 UNIT/ML VIAL SQ SCH ×2 (06:17→17:53)
[2016-11-08] MEDS: Fenofibrate 54 MG TABLET PO SCH (07:15)
[2016-11-08] MEDS: Furosemide 20 MG/2 ML VIAL IVP SCH ×2 (07:15→21:15)
[2016-11-08] MEDS: Aspirin Enteric Coated 81 MG Tablet PO SCH (07:15)
[2016-11-08] MEDS: Pantoprazole 40 MG VIAL IVP SCH (07:16)
[2016-11-08] MEDS: Chlorhexidine Rinse 15 ML MOUTHWASH MM SCH ×2 (07:16→21:15)
[2016-11-08] MEDS: Insulin LISPRO 300 UNITS/3 ML VIAL SQ SCH ×4 (07:23→21:24)
[2016-11-08] MEDS: Insulin DETEMIR 100 UNIT/ML X5UNITS SQ SCH ×3 (08:05→21:14)
--- NOTE | 2016-11-08 08:16 | Internal Med Progress Note ---
Date of Encounter: 11/08/16 Time of Encounter: 08:45 - Assessment and plan (1) Diabetes mellitus Current Visit: Yes Status: Acute Assessment and plan: Patient required insulin drip post CABG, this was stopped 11/07. Blood sugars are not controlled, yet. Increase Levemir to 18 units twice a day. Continue insulin sliding scale. Diabetic diet. agricultural extension educator has been consulted. Qualifiers: Diabetes mellitus type: type 2 Diabetes mellitus complication status: with hyperglycemia Diabetes mellitus equipment operator intermodal yard insulin use: without equipment operator intermodal yard use Qualified Code(s): E11.65 - Type 2 diabetes mellitus with hyperglycemia (2) Hypertriglyceridemia Current Visit: Yes Status: Chronic Assessment and plan: Continue fenofibrate. Repeat triglyceride level was 225. - Subjective Interval history: Patient has no complaints. He is eating better his diet. Yesterday, he was brought a glucometer and was taught how to inject himself insulin subcutaneous. - Constitutional Vitals: Temp Pulse Resp BP Pulse Ox 97.7 F 110 18 134/91 93 L 11/08/16 07:22 11/08/16 07:31 11/08/16 07:22 11/08/16 07:22 11/08/16 07:22 General appearance: Present: cooperative, A&O X 3, pleasant, no acute distress, answers questions appropriately - Eye Eye exam: Present: PERRL, sclera anicteric - ENT ENT exam: Present: mucous membranes moist - Neck Neck exam general surgery: Present: supple, trachea midline. Absent: lymphadenopathy - Respiratory Respiratory exam: Present: decreased breath sounds (at left lung field) Additional comments: chest: sternal dressing in place. - Cardiovascular Cardiovascular exam: Present: tachycardia - GI/Abdominal GI/Abdominal exam: Present: soft. Absent: distended - Extremities Exam Extremities exam: Present: pedal edema - Back Exam Back exam: Absent: CVA tenderness (L), CVA tenderness (R) - Neurological Exam Neurological exam: Present: alert, oriented X3, no focal deficits. Absent: facial droop, speech deficit Internal Medicine: Result - Labs CBC & Chem 7: 11/08/16 04:17 11/08/16 04:17 Labs: Short CBC 11/08/16 Range/Units 04:17 WBC 8.2 (4.3-11.1) K/mcL Hgb 9.7 L (12.9-16.9) g/dL Hct 29.3 L (37.5-50.1) % Plt Count 162 (140-400) K/mcL Neutrophils # 6.2 (1.6-8.9) K/mcL BMP 11/08/16 04:17 Sodium 140 Potassium 3.8 Chloride 104 Carbon Dioxide 25 BUN 27 H Creatinine 0.96 Glucose 218 H Calcium 8.5 L Liver Function 11/08/16 Range/Units 04:17 Total Bilirubin 0.6 (0.2-1.2) mg/dL AST 15 (5-34) Units/L ALT 15 (0-55) Units/L Alkaline Phosphatase 69 (38-126) Units/L Albumin 2.8 L (3.5-5.0) g/dL - ABG Interpretation ABG results: ABG ABG pH 7.42 pH Units (7.32-7.45) 11/05/16 21:52 ABG pCO2 43 mmHg (35-45) 11/05/16 21:52 ABG pO2 129 mmHg (85-104) H 11/05/16 21:52 ABG O2 Saturation 99 % (95-98) H 11/05/16 21:52 PT/INR, D-dimer PT 12.9 Seconds (9.4-12.1) H 11/06/16 03:55 - Impressions Impressions Chest X-Ray 11/07/16 09:26 IMPRESSION: 1. New tiny right apical pneumothorax following removal of the chest tubes. Continued radiographic follow-up is recommended. 2. Bibasilar atelectasis, improved on the right. Results verbally communicated to the patient's nurse, Shaquille Begum, at 10:01 a.m. on 11/07/2016 by the [facility]. D/ / 11/07/2016 10:11:47 Aaron Xiong MD / patricia Interpreting Provider: Aaron Xiong MD - VTE Documentation of Mechanical Device: Graduated compression elastic hosiery Consult Discharge Plan - Plan Referrals: Billie Louis MD [Partnered Physician] - 12/06/16 1:20 pm Micah Kimble DO [Partnered Physician] - (SENT WEB REQUEST ON 11-07-16 @ 0993 ) Leticia Dotson, BLACKTOP PAVER OPERATOR [Primary Care Provider] - (SENT WEB REQUEST ON 11-07-16 @ 0909)
--- NOTE | 2016-11-08 08:46 | Cardiothoracic Progress Note ---
Date of Encounter: 11/08/16 Time of Encounter: 08:45 - Assessment and plan (1) CAD (coronary artery disease) Current Visit: No Status: Acute The assessment and plan as outlined above was discussed with the patient and/or family members who expressed understanding and agreement. All questions were answered. I will increase the patient's Lopressor dosage to 50 mg by mouth twice a day. We will plan to discharge him tomorrow. I will repeat the chest x-ray tomorrow morning to follow-up on the small pneumothorax. Qualifiers: Coronary Disease-Associated Artery/Lesion type: [place] artery [place] vs. transplanted heart: [place] heart Associated angina: with stable angina Qualified Code(s): I25.118 - Atherosclerotic heart disease of [place] coronary artery with other forms of angina pectoris - Subjective Interval history: The patient has no complaints and is anxious to go home. He states that he understands his diabetic treatment. Vital Signs, Last 4 Hours Temp Pulse Resp BP Pulse Ox 11/08/16 07:31 110 11/08/16 07:22 97.7 F 115 18 134/91 93 L Oxgyen Flow Rate Oxygen Flow Rate (LPM) 2 Weight 11/06/16 11/07/16 11/08/16 23:59 23:59 23:59 Weight 95.255 kg Lungs are clear to percussion and auscultation. Heart is in a normal sinus rhythm. All incisions are healing well without signs of infection and the sternum is stable. Chest x-ray reveals a tiny apical pneumothorax. - Labs 11/08/16 04:17 11/08/16 04:17 Lab Results, Last 24 hours 11/08/16 11/08/16 04:17 04:17 WBC 8.2 Hgb 9.7 L Hct 29.3 L Plt Count 162 Sodium 140 Potassium 3.8 Chloride 104 Carbon Dioxide 25 BUN 27 H Creatinine 0.96 Glucose 218 H Calcium 8.5 L Magnesium 2.3 Total Bilirubin 0.6 AST 15 ALT 15 Alkaline Phosphatase 69 - VTE Documentation of Mechanical Device: Graduated compression elastic hosiery Consult Discharge Plan - Plan Referrals: Billie Louis MD [Partnered Physician] - 12/06/16 1:20 pm Micah Kimble DO [Partnered Physician] - (SENT WEB REQUEST ON 11-07-16 @ 0949 ) Leticia Dotson, ANNA [Primary Care Provider] - (SENT WEB REQUEST ON 11-07-16 @ [phone])
[2016-11-08] MEDS: *HR* OxyCODONE/APAP 5/325 TABLET PO PRN (15:57)
[2016-11-09] MEDS: *HR* OxyCODONE/APAP 5/325 TABLET PO PRN ×2 (03:19→08:52)
[2016-11-09 05:42] LABS: Basophils % 0.3 %; Eosinophils # 0.1 K/mcL (0.0-0.6); Eosinophils % 1.4 %; Hematocrit 28.9 % (37.5-50.1); Hemoglobin 9.5 g/dL (12.9-16.9); Immature Granulocytes % 0.6 % (0-4); Lymphocytes # 1.4 K/mcL (0.6-4.6); Lymphocytes % 19.9 %; Mean Corpuscular HGB Conc 32.9 g/dL (31.6-35.5); Mean Corpuscular Hemoglobin 29.5 pg (28.0-33.3); Mean Corpuscular Volume 89.8 fL (83.0-100.0); Mean Platelet Volume 10.4 fL (9.4-12.4); Monocytes # 0.7 K/mcL (0.0-1.3); Monocytes % 9.7 %; Neutrophils # 4.9 K/mcL (1.6-8.9); Platelet Count 208 K/mcL (140-400); Red Blood Count 3.22 M/mcL (4.19-5.50); Red Cell Distribution Width 12.7 % (11.5-14.5); Segmented Neutrophils % 68.1 %
[2016-11-09 05:57] LABS: BUN/Creatinine Ratio 31 (6-26); Blood Urea Nitrogen 28 mg/dL (8-26); Calcium 8.6 mg/dL (8.6-10.8); Carbon Dioxide 25 mEq/L (19-29); Chloride 104 mEq/L (98-109); Glucose 203 mg/dL (70-99); Osmolality,Calculated 301 (280-300); Potassium 3.8 mEq/L (3.5-4.5); Sodium 140 mEq/L (136-145); eGFR For African Americans > 60 (> 60); eGFR For Non-African Americans > 60 (> 60)
[2016-11-09] MEDS: *HR* Heparin 5,000 UNIT/ML VIAL SQ SCH (06:13)
[2016-11-09] MEDS: Ketorolac 15 MG/ML VIAL IVP SCH (06:14)
[2016-11-09 07:47] VITALS: BP 128/97
[2016-11-09] MEDS: Fenofibrate 54 MG TABLET PO SCH (08:50)
[2016-11-09] MEDS: Aspirin Enteric Coated 81 MG Tablet PO SCH (08:55)
[2016-11-09] MEDS: Pantoprazole 40 MG VIAL IVP SCH (08:56)
[2016-11-09] MEDS: Insulin LISPRO 300 UNITS/3 ML VIAL SQ SCH (09:01)
[2016-11-09] MEDS: Insulin DETEMIR 100 UNIT/ML X5UNITS SQ SCH (09:03)
[2016-11-09] MEDS: Chlorhexidine Rinse 15 ML MOUTHWASH MM SCH (09:03)
--- NOTE | 2016-11-09 09:21 | Discharge Summary ---
Date of Encounter: 11/09/16 Time of Encounter: 09:15 - Discharge Diagnosis (1) CAD (coronary artery disease) Priority: Primary Status: Acute Qualifiers: Coronary Disease-Associated Artery/Lesion type: [place] artery [place] vs. transplanted heart: [place] heart Associated angina: with stable angina Qualified Code(s): I25.118 - Atherosclerotic heart disease of [place] coronary artery with other forms of angina pectoris - Discharge Medications Prescriptions: OxyCODONE/APAP 5/325 [Percocet 5/325 MG] 1 each PO Q4HR PRN #30 tablet PRN Reason: Severe Pain Insulin DETEMIR [Levemir] 18 unit SQ BID #20 [id number] Metoprolol [Lopressor] 50 mg PO BID #60 tablet Home Medications: Aspirin 81 mg PO DAILY 11/01/16 [History] Fenofibrate Nanocrystallized [Tricor] 145 mg PO DAILY #30 tablet 11/01/16 [Rx] Isosorbide MONOnitrate (24 HR) [Imdur] 30 mg PO DAILY #30 tab.er.24h 11/01/16 [ Rx] Rosuvastatin Calcium [Crestor] 40 mg PO DAILY #30 tablet 11/01/16 [Rx] Insulin DETEMIR [Levemir] 18 unit SQ BID #20 [id number] 11/09/16 [Rx] Metoprolol [Lopressor] 50 mg PO BID #60 tablet 11/09/16 [Rx] OxyCODONE/APAP 5/325 [Percocet 5/325 MG] 1 each PO Q4HR PRN #30 tablet 11/09/16 [Rx] Allergies/Adverse Reactions: Allergies No Known Allergies Allergy (Verified 11/05/16 07:29) Date of admission: 11/05/16 11:22 Primary care physician: Leticia Dotson CNP Consults: 11/05/16 12:32 Consult to Cardiac Rehabilitation-Phase1 [CONS] Routine Comment: Reason for Consult: Post open heart Call Completed: Yes 11/06/16 13:07 Consult to Janitor And Cleaner [CONS] Routine Comment: newly dx. A1c 11.1% on 10/31/16. 11/07/16 09:26 Consult to Hospitalist [CONS] Routine Consulting Provider: Hospitalist Fan Reason for Consult: Medical management of newly diagnosed diabetes mellitus. Time Notified: 09:15 Call Completed: Yes Procedure(s) Performed: November 05, 2016. Coronary artery bypass grafting 3 utilizing the left internal mammary artery, right internal mammary artery and left radial artery. Discharging clinician: Jose Guthrie Anticipated date of discharge: 11/09/16 - Patient Status Disposition: Home, Self-Care Condition: Good Functional capacity at discharge: independent ambulation Overall status at discharge: patient is progressing back to baseline - Discharge Instructions Follow Up With: Billie Louis MD [Partnered Physician] - 12/06/16 1:20 pm Micah Kimble, [Partnered Physician] - (SENT WEB REQUEST ON 11-07-16 @ 0999 ) Leticia Dotson CNP [Primary Care Provider] - (SENT WEB REQUEST ON 11-07-16 @ 0380) - Hospital Course Hospital course: Mr. Messer is a 51 year old male Patient is a 51-year-old gentleman with newly diagnosed diabetes. He also has hypercholesterolemia. He presented with a positive nuclear stress test. Cardiac catheterization revealed triple-vessel disease. On November 05, 2016, my partner Dr. Louis took the patient to the operating room for coronary artery bypass grafting 3 utilizing his left internal mammary artery, right internal mammary artery and left radial artery. The patient tolerated the procedure well. On November 06, 2016 he was transferred to the floor. He did have sinus tachycardia , but this was controlled with Lopressor. On November 07 his chest tubes were removed. Chest x-ray revealed a tiny right apical pneumothorax. Chest x-ray done on November 09 revealed a tiny right apical pneumothorax that was improved. The patient was seen by internal medicine and started on insulin for his diabetes. On November 09 I removed his pacing wires. He was discharged on November 09. At that time he was afebrile. Lungs were clear to percussion and auscultation. Heart was in a normal sinus rhythm. All incisions were healing well without signs of infection and the sternum was stable. Medications are on the med rec and include Percocet 02/13/25 for pain. I did check the [place] automated Rx reporting system. Appropriate precautions were given. The patient was given a one-week supply and he was postoperative. The patient was to follow a diabetic diet. He was instructed in this by the diabetic nurse educator and the internal medicine doctor. He was to walk as much as possible, but to avoid heavy lifting for a total of 3 months after surgery. He was to avoid driving for 1 month. He was to follow-up with Dr. Louis in 4 weeks as directed. He was to follow up with his primary care doctor and orthopedic dentist as directed. He was to call sooner for any difficulties. - Time Spent with Patient Total time spent providing and/or coordinating discharge services: Physical Examination Vital Signs, Last 4 Hours Temp Pulse Resp BP Pulse Ox 11/09/16 08:20 16 97 11/09/16 07:41 98.2 F 112 18 128/97 96 Open Heart Registry Aspirin Cont/Prescribed at DC: Yes Beta Cornelia Cont/Prescribed at DC: Yes Statin Cont/Prescribed at DC: Yes CHRISTEN/ARB Cont/Prescribed at DC: Not indicated - VTE Documentation of Mechanical Device: Graduated compression elastic hosiery
--- NOTE | 2016-11-09 11:55 | Internal Med Progress Note ---
Date of Encounter: 11/09/16 Time of Encounter: 10:30 - Assessment and plan (1) Diabetes mellitus Status: Acute Assessment and plan: Patient required insulin drip post CABG, this was stopped 11/07. Blood sugars are better controlled. continue Levemir 18 units twice a day at home. Continue Diabetic diet and checking blood sugars at home. 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 triglyceride level is 225. - Subjective Interval history: Patient is eating well. He received nutrition education. no complaints. - Constitutional Vitals: Temp Pulse Resp BP Pulse Ox 98.2 F 102 16 128/97 97 11/09/16 07:41 11/09/16 08:40 11/09/16 08:20 11/09/16 07:41 11/09/16 08:20 General appearance: Present: cooperative, A&O X 3, pleasant, no acute distress, obese, answers questions appropriately - Eye Eye exam: Present: PERRL - Neck Neck exam general surgery: Present: supple, trachea midline. Absent: lymphadenopathy - Respiratory Respiratory exam: Present: decreased breath sounds (at bases) - Cardiovascular Cardiovascular exam: Present: tachycardia - GI/Abdominal GI/Abdominal exam: Present: normal bowel sounds, soft. Absent: distended, tenderness - Extremities Exam Extremities exam: Absent: pedal edema - Neurological Exam Neurological exam: Present: alert, oriented X3. Absent: facial droop, speech deficit Internal Medicine: Result - Labs CBC & Chem 7: 11/09/16 05:16 11/09/16 05:16 Labs: Short CBC 11/09/16 Range/Units 05:16 WBC 7.2 (4.3-11.1) K/mcL Hgb 9.5 L (12.9-16.9) g/dL Hct 28.9 L (37.5-50.1) % Plt Count 208 (140-400) K/mcL Neutrophils # 4.9 (1.6-8.9) K/mcL BMP 11/09/16 05:16 Sodium 140 Potassium 3.8 Chloride 104 Carbon Dioxide 25 BUN 28 H Creatinine 0.90 Glucose 203 H Calcium 8.6 - ABG Interpretation ABG results: ABG ABG pH 7.42 pH Units (7.32-7.45) 11/05/16 21:52 ABG pCO2 43 mmHg (35-45) 11/05/16 21:52 ABG pO2 129 mmHg (85-104) H 11/05/16 21:52 ABG O2 Saturation 99 % (95-98) H 11/05/16 21:52 PT/INR, D-dimer PT 12.9 Seconds (9.4-12.1) H 11/06/16 03:55 - Impressions Impressions Chest X-Ray 11/09/16 00:01 IMPRESSION: Tiny residual right apical pneumothorax. D/ / Hernando Rob MD / Hernando Rob MD Interpreting Provider: Hernando Rob MD - VTE Documentation of Mechanical Device: Graduated compression elastic hosiery Consult Discharge Plan - Plan Instructions: Metoprolol (By mouth), Oxycodone/Acetaminophen (By mouth), Insulin Detemir (Injection), Coronary Artery Bypass Graft (DC), Diabetes Mellitus Type 2 in Adults (DC) Additional Instructions: SEE OPEN HEART HANDOUT PROVIDED Referrals: Billie Louis MD [Partnered Physician] - 12/06/16 1:20 pm Dwight Jimenez CNP [Advanced Practice Nurse] - 11/28/16 1:30 pm Leticia Dotson CNP [Primary Care Provider] - 11/15/16 9:45 am () Prescriptions: OxyCODONE/APAP 5/325 [Percocet 5/325 MG] 1 each PO Q4HR PRN #30 tablet PRN Reason: Severe Pain Insulin DETEMIR [Levemir] 18 unit SQ BID #20 [id number] Metoprolol [Lopressor] 50 mg PO BID #60 tablet
== END 2016-11-09 11:46 | disposition home or self-care (01) | DRG 235 ==
LOC: SAMDAY 06:00 → SUATTDRO 11:22 → ICNU 11:22 → 2NNU 11-06 11:05
PROVIDERS: ADMIT Thoracic Surgery (Cardiothoracic Vascular Surgery); ATTEND Thoracic Surgery (Cardiothoracic Vascular Surgery)

== ENCOUNTER 2021-10-31 03:31 | Observation (INO) ==
[2021-10-31] MEDS ORDERED: ceFAZolin 2,000 MG in 0.9 % Sodium Chloride 100 ML IVPB ONE (04:05)
[2021-10-31] MEDS ORDERED: Naloxone 0.4 MG/ML INJ IVP PRN (05:35)
[2021-10-31] MEDS ORDERED: Melatonin 3 MG TABLET PO PRN (05:35)
[2021-10-31] MEDS ORDERED: Ondansetron 4 MG/2 ML VIAL IVP ONE (05:48)
[2021-10-31] MEDS ORDERED: D5% in Water 1,000 ML IVC PRN (06:00)
[2021-10-31] MEDS ORDERED: Dextrose Gel 15 GM/37.5 ML TUBE PO PRN ×2 (06:00)
[2021-10-31] MEDS ORDERED: *HR* Dextrose 50 % in Water (Syg) 50 ML SYRINGE IVP PRN (06:00)
[2021-10-31] MEDS ORDERED: Ondansetron 4 MG/2 ML VIAL ONE (06:02)
[2021-10-31] MEDS ORDERED: *HR* Propofol 200 MG/20 ML VIAL IVP ONE (06:02)
[2021-10-31] MEDS ORDERED: *HR* Midazolam HCl 2 MG/2 ML VIAL ONE (06:02)
[2021-10-31] MEDS ORDERED: *HR* FentaNYL (PF) 100 MCG/2 ML VIAL ONE (06:02)
[2021-10-31 06:04] LABS: Basophils % 0.3 %; Eosinophils % 0.3 %; Hematocrit 49.8 % (37.5-50.1); Hemoglobin 16.7 g/dL (12.9-16.9); Immature Granulocytes % 0.4 % (0-4); Lymphocytes # 1.3 K/mcL (0.6-4.6); Lymphocytes % 13.6 %; Mean Corpuscular HGB Conc 33.5 g/dL (31.6-35.5); Mean Corpuscular Hemoglobin 29.2 pg (28.0-33.3); Mean Corpuscular Volume 87.2 fL (83.0-100.0); Mean Platelet Volume 11.2 fL (9.4-12.4); Monocytes # 0.7 K/mcL (0.0-1.3); Monocytes % 7.3 %; Neutrophils # 7.5 K/mcL (1.6-8.9); Platelet Count 194 K/mcL (140-400); Red Blood Count 5.71 M/mcL (4.19-5.50); Red Cell Distribution Width 12.4 % (11.5-14.5); Segmented Neutrophils % 78.1 %; White Blood Count 9.6 K/mcL (4.3-11.1)
[2021-10-31] MEDS ORDERED: Tdap (Boostrix) Vaccine 0.5 ML SYRINGE IM ONE (06:06)
[2021-10-31 06:13] LABS: Prothrombin Time 11.6 Seconds (9.4-12.1)
[2021-10-31 06:16] LABS: Activated Partial Thrombo Time 32.1 Seconds (26.0-36.0)
[2021-10-31 06:21] LABS: BUN/Creatinine Ratio 19 (6-26); Blood Urea Nitrogen 18 mg/dL (6-20); Calcium 9.4 mg/dL (8.6-10.3); Carbon Dioxide 27 mEq/L (23-29); Chloride 103 mEq/L (98-107); Glucose 228 mg/dL (70-105); Osmolality,Calculated 297 (280-300); Potassium 3.8 mEq/L (3.5-5.1); Sodium 139 mEq/L (136-145); eGFR For African Americans > 60 (> 60); eGFR For Non-African Americans > 60 (> 60)
[2021-10-31] MEDS ORDERED: Lidocaine/EPI 1:100k 1% 30 ML VIAL ONE (07:27)
[2021-10-31] MEDS ORDERED: Famotidine 20 MG/2 ML VIAL IVP ONE (07:46)
[2021-10-31] MEDS ORDERED: *HR* OxyCODONE Immed Rel 5 MG TABLET PO PRN (07:51)
[2021-10-31] MEDS ORDERED: Promethazine 6.25 MG in Water for inj. (sterile) 20 ML IVPB PRN (07:51)
[2021-10-31 07:54] VITALS: BP 125/106; PULSE 87; TEMP 97.4; O2SAT 97
[2021-10-31] MEDS: Insulin LISPRO 300 UNITS/3 ML VIAL SUBQ SCH ×2 (09:12→12:23)
[2021-10-31] MEDS ORDERED: FLU Vac QV 21-22 (6Month+)/PF 0.5 ML SYRINGE IM ONE (14:50)
[2021-10-31] MEDS ORDERED: Insulin LISPRO 300 UNITS/3 ML VIAL SUBQ SCH (21:00)
== END 2021-10-31 15:11 | disposition home or self-care (01) ==
LOC: EMEROOARM 03:31 → 4WAOSI 03:31
PROVIDERS: ADMIT Student in an Organized Health Care Education/Training Program; ATTEND Student in an Organized Health Care Education/Training Program
PROC: ORTFASC (2021-10-31 06:00)